=== PATIENT | female | born 1960 ===

== ENCOUNTER 2024-08-29 11:45 | Inpatient (IN) | payer OTHER ==
[~2024-08-29] VITALS: Ht 175.3 cm; Wt 86.2 kg
[2024-08-29 12:00] VITALS: BP 125/61
[2024-08-29] MEDS ORDERED: SYNTHROID150 MCG PO (12:02)
[2024-08-29] MEDS ORDERED: ZESTRIL20 MG PO (12:03)
[2024-08-29] MEDS ORDERED: LOPID (12:04)
[2024-08-29 12:05] VITALS: BP 107/70
[2024-08-29] MEDS ORDERED: HYDRODIURIL12.5 MG (12:05)
[2024-08-29 13:43] LABS: RH POSITIVE
[2024-09-01] MEDS ORDERED: POVIDONE-IODINE 118 ML BOTT TOP ONE (10:05)
[2024-09-01] MEDS ORDERED: CEFAZOLIN SODIUM 1,000 MG VIAL ONE (10:05)
[2024-09-01] MEDS ORDERED: METRONIDAZOLE/SODIUM CHLORIDE 500 MG/100 ML PIGGYBACK IV ONE (10:24)
[2024-09-01] MEDS ORDERED: SURGIFLO APPLICATOR 1 EACH APPL TOP ONE (11:34)
[2024-09-01] MEDS ORDERED: HEMOSTATIC MATRIX 1 KIT KIT TOP ONE (11:34)
[2024-09-01] MEDS ORDERED: SUGAMMADEX SODIUM 200 MG/2 ML VIAL IV ONE (11:52)
[2024-09-01] MEDS ORDERED: MORPHINE SULFATE 4 MG/ML CARTRIDGE IV PRN (12:30)
[2024-09-01] MEDS ORDERED: RINGERS SOLUTION,LACTATED 1,000 ML IV SCH (12:30)
[2024-09-01] MEDS ORDERED: ONDANSETRON HCL 2 MG/ML VIAL IV PRN (12:30)
[2024-09-01] MEDS ORDERED: OxyCODONE HCL/APAP UD (PERCOCET) PO PRN (12:30)
[2024-09-01] MEDS ORDERED: MORPHINE SULFATE 4 MG/ML VIAL IV ONE ×2 (12:35→14:15)
[2024-09-01 14:44] LABS: HEMATOCRIT 36.4 % (36.0-45.00); HEMOGLOBIN 12.3 g/dL (12.0-15.00); MEAN CELL VOLUME 79.5 fL (80.00-100.00); MEAN CORPUSCULAR HEMOGLOBIN 26.9 pg (27.00-32.0); MEAN CORPUSCULAR HGB CONC 33.8 g/dl (32.0-36.0); PLATELET COUNT 192 K/uL (150-450); RED BLOOD COUNT 4.58 M/uL (4.00-6.00); RED CELL DISTRIBUTION WIDTH 13.8 % (11.5-14.5)
[2024-09-01 15:45] LABS: ALBUMIN 3.6 gm/dL (3.4-5.0); CALCIUM 8.8 mg/dL (8.5-10.1); CREATININE SERUM 0.77 mg/dL (0.55-1.02); GFR 75.96; MAGNESIUM 1.9 mg/dL (1.8-2.4); PHOSPHOROUS 3.7 mg/dL (2.5-4.9); POTASSIUM 4.15 mEq/L (3.5-5.1)
[2024-09-01 16:37] VITALS: BP 125/61
[2024-09-01] MEDS ORDERED: KETOROLAC TROMETHAMINE 30 MG VIAL IM SCH (18:00)
[2024-09-01] MEDS ORDERED: CEFAZOLIN SODIUM 1,000 MG VIAL IV SCH (21:00)
[2024-09-01] MEDS ORDERED: FAMOTIDINE/PF 20 MG/2 ML VIAL IV PUSH SCH (21:00)
[2024-09-02] VITALS: BP 105/59
[2024-09-02] MEDS ORDERED: LEVOTHYROXINE SODIUM 150 MCG TABLET PO SCH (06:00)
[2024-09-02 06:55] LABS: HEMATOCRIT 31.4 % (36.0-45.00); HEMOGLOBIN 11.2 g/dL (12.0-15.00); MEAN CELL VOLUME 78.5 fL (80.00-100.00); MEAN CORPUSCULAR HGB CONC 35.6 g/dl (32.0-36.0); PLATELET COUNT 161 K/uL (150-450); RED CELL DISTRIBUTION WIDTH 13.9 % (11.5-14.5)
[2024-09-02 07:47] LABS: ALBUMIN 3.1 gm/dL (3.4-5.0); CALCIUM 8.5 mg/dL (8.5-10.1); CREATININE SERUM 0.7 mg/dL (0.55-1.02); GFR 84.79; MAGNESIUM 1.9 mg/dL (1.8-2.4); PHOSPHOROUS 3.4 mg/dL (2.5-4.9); POTASSIUM 4.37 mEq/L (3.5-5.1)
[2024-09-02 08:00] VITALS: BP 112/67
[2024-09-02] MEDS ORDERED: LISINOPRIL 20 MG TABLET PO SCH (09:00)
[2024-09-02] MEDS ORDERED: HYDROCHLOROTHIAZIDE 12.5 MG CAPSULE PO SCH (09:00)
[2024-09-02] MEDS ORDERED: ENOXAPARIN SODIUM 40 MG/0.4 ML SYRINGE SUBCUTANEO SCH (09:00)
[2024-09-02] MEDS ORDERED: SUGAMMADEX SODIUM 200 MG/2 ML VIAL IV ONE (17:15)
== END 2024-09-02 10:46 | disposition home or self-care (01) | DRG 747 ==
LOC: OB/GYN 09-01 06:00 → O/R 09-01 06:00 → SURG 09-01 10:45 → OB/GYN 09-01 12:58
PROVIDERS: ADMIT Obstetrics & Gynecology Gynecologic Oncology; ATTEND Obstetrics & Gynecology Gynecologic Oncology
PROC: 07BC4ZZ Excision of Pelvis Lymphatic, Percutaneous Endoscopic Approach (ICD-10-PCS; 2024-09-01)
PROC: 0DNU4ZZ Release Omentum, Percutaneous Endoscopic Approach (ICD-10-PCS; 2024-09-01)
PROC: 0TN74ZZ Release Left Ureter, Percutaneous Endoscopic Approach (ICD-10-PCS; 2024-09-01)
PROC: 0TN64ZZ Release Right Ureter, Percutaneous Endoscopic Approach (ICD-10-PCS; 2024-09-01)
PROC: 0DNW4ZZ Release Peritoneum, Percutaneous Endoscopic Approach (ICD-10-PCS; 2024-09-01)
PROC: 0UTC4ZZ Resection of Cervix, Percutaneous Endoscopic Approach (ICD-10-PCS; principal; 2024-09-01 10:45)
DX: D06.7 Carcinoma in situ of other parts of cervix (principal); D36.0 Benign neoplasm of lymph nodes